=== PATIENT | female | born 2000 | race Caucasian/White ===

== ENCOUNTER → 2021-06-29 16:23 | Outpatient (CLI) | payer OTHER, SELFPAY ==
[2021-06-29 17:04] LABS: Add Manual Diff / Slide Review NO; Basophils Absolute Auto 0 /uL (0-100); Basophils Percent Auto 0.4 % (0-2); Eosinophils Absolute Auto 100 /uL (0-450); Eosinophils Percent Auto 1.4 % (2-4); Hematocrit 38.9 % (36-46); Hemoglobin 13.5 g/dL (12.0-16.0); Lymphocytes Absolute Auto 1900 /uL (1100-4500); Lymphocytes Percent Auto 22.3 % (25-40); Mean Corpuscular HGB Conc 34.6 % (30-36); Mean Corpuscular Hemoglobin 29.8 PG (26-34); Mean Corpuscular Volume 86.3 fL (80-100); Monocytes Absolute Auto 600 /uL (0-900); Monocytes Percent Auto 6.8 % (3-14); Neutrophils Absolute Auto 5900 /uL (1500-7000); Neutrophils Percent Auto 69.1 % (50-75); Platelet Count 226 X10^3/uL (150-400); Red Blood Cell Count 4.51 X10^6/uL (4.0-5.2); Red Cell Distribution Width 13.8 % (11.6-14.8); White Blood Cell Count 8.5 X10^3/uL (4.5-11.0)
[2021-06-29 17:26] LABS: Appearance Urine UA CLEAR; Bilirubin Urine UA NEGATIVE (NEGATIVE); Color Urine UA YELLOW; Glucose Urine UA NEGATIVE (Negative); Ketones Urine UA NEGATIVE (NEGATIVE); Leukocyte Esterase Urine UA 2+ (NEGATIVE); Nitrite Urine UA NEGATIVE (Negative); Occult Blood Urine UA NEGATIVE (Negative); Protein Urine UA NEGATIVE (Negative); Specific Gravity Urine UA 1.015 (1.000-1.035); Urobilinogen Urine UA 0.2 E.U./dL (0.2)
[2021-06-29 17:35] LABS: Bacteria Urine Few (2-10); Culture Indicated Urine Cult Not Indicated; RBC Urine None Seen (0-5/HPF); Squamous Epithelial Cell Urine 0-1 /HPF (0-5/HPF); WBC Urine 5-10/HPF (0-5/HPF)
[2021-06-30 06:54] LABS: RPR Screen Non Reactive (Non Reactive)
[2021-06-30 12:10] LABS: Varicella IgG Antibody 550 index (Immune >165)
[2021-07-02 16:13] LABS: Hepatitis B Surface Antigen NEGATIVE s/c (NEGATIVE); Rubella Antibody IgG 4.9 IU/mL (>15)
[2021-07-02 16:24] LABS: HIV 1 & 2 Ab/Ag 4th Gen Combo NEGATIVE (NEGATIVE); Hep C Virus Ab w/Reflex Quant NEGATIVE s/c (NEGATIVE)
== END ==
PROVIDERS: PCP Family Medicine; Referring Provider Family Medicine; Visit Provider Family Medicine
DX: Z34.80 Encounter for supervision of other normal pregnancy, unspecified trimester (principal)
CPT/HCPCS: 36415; 80055; 81003; 81015; 86787; 86803; 86850; 86900; 86901; 87086; 87389

== ENCOUNTER → 2021-08-21 15:03 | Outpatient (CLI) | payer OTHER, SELFPAY ==
--- NOTE | 2021-08-21 15:04 | DI.US.S_ITS ---
PROCEDURE: US OB >= 14 WEEKS FETUS INDICATIONS: ANATOMY OUTSIDE/PRIOR DATING DATA: Last menstrual period (LMP): 03/29/2021 LMP-based estimated date of delivery (DARLING): 01/03/2022. First dating scan (date and location): 08/21/2021. Estimated date of delivery (DARLING) from first dating scan: 01/03/2022. The calculations are made using the ultrasound DARLING of 01/03/2022. TECHNIQUE: Real-time scanning was performed of the fetus, with image documentation and biometric measurements. COMPARISON: None. FINDINGS: General: A single living intrauterine gestation is present. Presentation: Breech. Placenta: Placental position is anterior , without previa. Amniotic fluid index: 15.3 cm, normal range is 5-24 cm. heart rate: 141 beats per minute. Maternal cervical canal: 5.0 cm long. Normal lower limit is 2.5 cm. biometrics: Biparietal diameter: 20 weeks 4 days Head circumference: 21 weeks 0 days Abdominal circumference: 20 weeks 2 days Femur length: 20 weeks 6 days Composite gestational age from present scan: 20 weeks 5 days Anatomic survey: Neuro: Ventricles are non-dilated at less than 10 mm. Cisterna magna is normal at 3-11 mm. Cerebellum is normal in size and morphology. Nuchal skin fold: Normal at less than 6 mm between 14-21 weeks gestational age. Face: Nose and lips, facial profile are normal. Spine: No evidence for spina bifida. Heart: 4-chambered heart is present, with normal ventricular outflow tracts. Diaphragm: Diaphragm is intact. Stomach: Left-sided stomach is present. Kidneys: No hydronephrosis. Normal is less than 5 mm in 2nd trimester, less than 7 mm in 3rd trimester. Cord: 3-vessel cord has orthotopic insertion. Bladder: Normal in size. Extremities: All 4 extremities identified. IMPRESSION: 1. A 20-week 5-day single living IUP corresponding to ultrasound DARLING of 01/03/2022. 2. Normal anatomic survey. We strive to produce accurate, complete, and clear reports of imaging services. To assist us in improving patient care, this report was composed using standard report templates and voice recognition software. Therefore, it may contain abnormal punctuation, insertions and/or omissions. Occasional wrong-word or sound-alike substitutions may occur. Though we review the report and make efforts to correct it, we do recommend that the report be read carefully in proper context to recognize any text inaccuracies. Dictated by: Eliezer AVILA Interpreted: Jeanna Linda MD on 08/21/2021 at 16:45 Transcribed by: YAIMA on 08/21/2021 at 16:47 Approved by: Jeanna Linda M.D. on 08/21/2021 at 17:24
== END ==
PROVIDERS: PCP Family Medicine; Referring Provider Family Medicine; Visit Provider Family Medicine
DX: Z34.92 Encounter for supervision of normal pregnancy, unspecified, second trimester (principal); Z3A.20 20 weeks gestation of pregnancy
CPT/HCPCS: 76811

== ENCOUNTER → 2021-08-28 10:51 | Outpatient (CLI) | payer OTHER, SELFPAY | PROVIDERS: PCP Family Medicine; Referring Provider Family Medicine; Visit Provider Family Medicine | DX: Z01.83 Encounter for blood typing (principal) | CPT/HCPCS: 36415; 86850; 86900; 86901 ==

== ENCOUNTER → 2021-10-08 08:58 | Outpatient (CLI) | payer OTHER, SELFPAY ==
[2021-10-08 11:09] LABS: Add Manual Diff / Slide Review NO; Basophils Absolute Auto 0 /uL (0-100); Basophils Percent Auto 0.3 % (0-2); Eosinophils Absolute Auto 100 /uL (0-450); Eosinophils Percent Auto 0.8 % (2-4); Hematocrit 34.1 % (36-46); Hemoglobin 11.8 g/dL (12.0-16.0); Lymphocytes Absolute Auto 1200 /uL (1100-4500); Lymphocytes Percent Auto 17.5 % (25-40); Mean Corpuscular HGB Conc 34.6 % (30-36); Mean Corpuscular Hemoglobin 30.7 PG (26-34); Mean Corpuscular Volume 88.8 fL (80-100); Monocytes Absolute Auto 400 /uL (0-900); Monocytes Percent Auto 5.7 % (3-14); Neutrophils Absolute Auto 5300 /uL (1500-7000); Neutrophils Percent Auto 75.7 % (50-75); Platelet Count 210 X10^3/uL (150-400); Red Blood Cell Count 3.84 X10^6/uL (4.0-5.2); Red Cell Distribution Width 13.4 % (11.6-14.8)
[2021-10-08 11:51] LABS: GTT (PREG) 1 Hour PP 50gm Dose 151 mg/dL (76-139)
== END ==
PROVIDERS: PCP Family Medicine; Referring Provider Family Medicine; Visit Provider Family Medicine
DX: O26.899 Other specified pregnancy related conditions, unspecified trimester (principal); Z67.91 Unspecified blood type, Rh negative; Z3A.26 26 weeks gestation of pregnancy
CPT/HCPCS: 36415; 82950; 85025; 86850

== ENCOUNTER → 2021-10-12 09:00 | Outpatient (CLI) | payer OTHER, SELFPAY ==
[2021-10-12 10:39] LABS: Glucose Fasting Gestational 86 mg/dL (76-95)
[2021-10-12 12:27] LABS: Glucose 1 Hour Gest 153 mg/dL (76-180)
[2021-10-12 12:42] LABS: Glucose Tol Interp,Gestational INTERPRETATION
[2021-10-12 13:04] LABS: Glucose 2 Hour Gest 158 mg/dL (76-155)
[2021-10-12 13:44] LABS: Glucose 3 Hour Gest 145 mg/dL (76-140)
== END ==
PROVIDERS: PCP Family Medicine; Referring Provider Family Medicine; Visit Provider Family Medicine
DX: O24.419 Gestational diabetes mellitus in pregnancy, unspecified control (principal)
CPT/HCPCS: 36415; 82951; 82952

== ENCOUNTER → 2021-12-10 17:19 | Outpatient (CLI) | payer OTHER, SELFPAY ==
[2021-12-12 13:32] LABS: Strep Grp B PCR NEG for Grp B Strep
== END ==
PROVIDERS: PCP Family Medicine; Visit Provider Family Medicine
DX: Z36.85 Encounter for antenatal screening for Streptococcus B (principal)
CPT/HCPCS: 87653

== ENCOUNTER 2021-12-21 10:01 | Inpatient (IN) | payer OTHER, SELFPAY ==
--- NOTE | 2021-12-21 10:33 | PM.OBHP.IH.1 ---
OB HPI Date/Time Date of admission: 12/21/21 Date Patient Seen: 12/21/21 History of Present Condition Chief complaint: OB DARLING Calculator Estimated Delivery Date Method Current WG Current Estimate 01/03/22 Manual 38w 1d Final DARLING - [place] Other Estimates 01/03/22 LMP (Certain) 38w 1d 01/03/22 Ultrasound #1 38w 1d Estimated Gestational Age (weeks): 38w1d : 2 Para: 1 Narrative: Pt is a 21yo at 38w1d who presented with leaking fluid. Pt reports feeling a trickling of fluid at around 8:30am. It has continued since then. No contractions or vaginal bleeding. She is feeling her baby move regularly. Her was complicated by gestational diabetes, with excellent diet control. care: good care, initiated at week # (13) and pounds weight gain (23) Dating criteria OB: LMP confirmed by 1st trimester US Ultrasounds: normal 1st trimester US and normal mid trimester US Obstetrical complications: gestational diabetes Medical complications OB: none Preadmission Labs Last OB Lab Results: Blood Type A Negative 08/28/21 10:56 Antibody Screen Negative 10/08/21 09:14 Hematocrit 34.9 % (36-46) L 12/21/21 10:50 Hemoglobin 11.8 g/dL (12.0-16.0) L 12/21/21 10:50 Hepatitis B Surface Antigen Negative s/c (NEGATIVE) 06/29/21 16:33 Hepatitis C Antibody Negative s/c (NEGATIVE) 06/29/21 16:33 Rubella Antibody 4.9 IU/mL (>15) L 06/29/21 16:33 Varicella-Zoster IgG Antibody 550 index (Immune >165) 06/29/21 16:33 Glucose 1 Hour 151 mg/dL (76-139) H 10/08/21 09:14 Group B Streptococcus (PCR) Neg for grp b strep 12/10/21 17:19 Glucose Tolerance Testing: Fasting (86), 1 hr (153), 2 hr (158) and 3 hr (145) -: Urine: negative External Labs -: Urine: negative Prior (ies) Past Pregnancies Del. Date GA/Weeks Labor Lgth Wt Sex Route Outcome Anesthesia Place Delv Breastfeed Preg Comp Name 07/29/16 38 24 6 lb 15 oz Male vaginal live - full term epidural [place] n/a none [place] Evaluation Evaluation Baseline heart rate: 135 Variability: Moderate (11-25) monitor accelerations: Present Monitor Decelerations: Absent Contraction Frequency (minutes): 6 Uterine Contraction Intensity: Mild Status: Category l Dilation (cm): 4 Effacement (%): 60 station: -3 [facility] Medical History (Updated 10/16/21 @ 10:44 by Janette Mccoy MD) No significant past medical history Surgical History (Updated 06/21/21 @ 14:32 by Enedina Ho RN) No significant past surgical history Family History (Updated 06/25/21 @ 19:54 by Rosita Martinez) Grandmother Diabetes mellitus Hyperlipidemia Hypertension Grandfather History of emphysema Social History marital status: number of children: 1 household members: spouse and children lives independently: Yes housing: house pets 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) education level: other occupational status: unemployed special maira needs: No seatbelt use: always water heater temp set < 120 deg: Yes (will check) working smoke detector in home: Yes fire extinguisher in home: Yes carbon monox detector in home: Yes firearms in home: No do you feel safe at home: Yes Smoking Status: Never smoker second hand exposure: No alcohol intake: former substance use type: does not use during the past year weight has: remained stable well-balanced diet: daily or most days daily servings fruits/ve-4 caffeine: No Type(s) of exercise: walking and regular exercise Meds Home Medications and Allergies Home Medications Medication Instructions Recorded Confirmed Type prenat.vits,casandra,[id number]-[id number] 1 tab PO DAILY 06/21/21 12/18/21 History fluconazole 150 mg tablet 150 mg PO DAILY rash #1 tab 07/03/21 12/18/21 Rx (Diflucan) glucometer #1 ea 10/16/21 12/18/21 Rx glucometer test strips #150 ea 10/19/21 12/18/21 Rx lancets #150 ea 10/19/21 12/18/21 Rx Allergies Allergy/AdvReac Type Severity Reaction Status Date / Time No Known Drug Allergies Allergy Unverified 12/18/21 10:33 OB Exam Narrative Exam Narrative: Gen: NAD, sitting comfortably in bed, appears well CV: RRR, no murmurs Resp: clear to auscultation bilaterally Abd: soft, nontender, gravid Ext: no edema Objective Labs Result Diagrams: 12/21/21 10:50 Assessment and Plan Assessment and Plan Assessment and Plan narrative: 21yo at 38w1d here with PROM. complicated by GDMA1 with excellent control. Rh negative (received Rhogam 10/16/21), GBS negative. - Expectant management, anticipate - FHT reassuring - Epidural for pain control when desired - GBS negative, no prophylaxis needed - After discussion with patient, will hold on pitocin for now to see if she converts spontaneously into labor. Will need to start by 8:30pm if not in labor by that point.
[2021-12-21 11:29] LABS: COVID19 -Nasal RAPID Negative (Negative)
[2021-12-21 11:41] LABS: Add Manual Diff / Slide Review NO; Basophils Absolute Auto 0 /uL (0-100); Basophils Percent Auto 0.2 % (0-2); Eosinophils Absolute Auto 100 /uL (0-450); Eosinophils Percent Auto 1.6 % (2-4); Hematocrit 34.9 % (36-46); Hemoglobin 11.8 g/dL (12.0-16.0); Lymphocytes Absolute Auto 1500 /uL (1100-4500); Lymphocytes Percent Auto 16.1 % (25-40); Mean Corpuscular HGB Conc 33.8 % (30-36); Mean Corpuscular Hemoglobin 28.3 PG (26-34); Mean Corpuscular Volume 83.7 fL (80-100); Monocytes Absolute Auto 800 /uL (0-900); Monocytes Percent Auto 8.7 % (3-14); Neutrophils Absolute Auto 6700 /uL (1500-7000); Neutrophils Percent Auto 73.4 % (50-75); Platelet Count 216 X10^3/uL (150-400); Red Blood Cell Count 4.17 X10^6/uL (4.0-5.2); Red Cell Distribution Width 14.7 % (11.6-14.8); White Blood Cell Count 9.2 X10^3/uL (4.5-11.0)
[2021-12-21 14:28] VITALS: BP 123/62
[2021-12-21] MEDS: LACTATED RINGERS 1,000 ML 100 ML IV (17:07)
[2021-12-21] MEDS: OXYTOCIN PREMIX 30 UNIT/500 ML PLAST..BAG IV (17:07)
--- NOTE | 2021-12-21 22:11 | P.PCNOB_ITS ---
Events: Gestational Diabetes Labor & Delivery Delivery date: 12/21/21 Intrapartal Events: None Cervical ripening method: none Induction method: per pitocin protocol Delivery monitor: external FHT and external uterine Route of delivery: Episiotomy description: None L&D Laceration Description: Perineal - 2nd Degree Quantitative Blood Loss: 100 Anesthesia Type: None Complications: None Narrative: PROCEDURE: at 38w1d presented with PROM and was admitted to Labor and Delivery. Pitocin was initiated due to no progression into labor, and titrated to a maximum of 11mU. The patient progressed through the 1st stage over 13 hours. Pain was controlled with natural methods. The patient progressed through the 2nd stage over 25 minutes and delivered a viable female infant with APGARs 9/9 at 21:43 via without complications. The cord was clamped and cut after it stopped pulsating. The perineum and vagina were inspected with 2nd degree perineal laceration repaired with 2-O Vicryl. PREPROCEDURE DIAGNOSIS: Intrauterine at 38w1d GBS negative RH negative GDMA1 POSTPROCEDURE DIAGNOSIS: Intrauterine at 38w1d, delivered Same as preprocedure [place] Baby 1: Infant gender: Female Presentation: vertex Position: Left Occiput Anterior Placenta delivery description: Spontaneous Cord Vessel Description: 3 Vessels score (1 min): 9 score (5 min): 9 weight: 7 lb 11.812 oz Plan for aftercare: Routine care
[2021-12-21] MEDS: IBUPROFEN 600 MG TABLET PO (23:28)
[2021-12-21] MEDS: ACETAMINOPHEN 325 MG TABLET 650 MG PO (23:28)
[2021-12-21] MEDS: DERMOPLAST SPRAY 20% 60 ML 1 SPRAY TOP (23:28)
[2021-12-22] MEDS: IBUPROFEN 600 MG TABLET PO ×3 (05:35→20:29)
[2021-12-22] MEDS: ACETAMINOPHEN 325 MG TABLET 650 MG PO ×3 (05:35→20:29)
[2021-12-22] MEDS: DOCUSATE 100 MG CAPSULE PO (11:56)
[2021-12-22] MEDS: PRENATAL VIT,CALC/IRON/FOLIC 1 TABLET 1 TAB PO (11:56)
--- NOTE | 2021-12-22 13:03 | PM.OBDS.1 ---
Discharge Providers Provider Date of admission: 12/21/21 10:01 Discharge Date: 12/22/21 Primary care physician: Janette Mccoy MD Consults: 12/22/21 22:12 Consult to Manager Home Improvement Routine Comment: Discharge provider: Janette Mccoy MD Summary Hospital Course Date Patient Seen: 12/22/21 Diagnoses: Intrauterine at 38w1d GBS negative RH negative GDMA1 Hospital Course: The pt presented with PROM. She did not naturally progress into labor, and pitocin was initiated. The pt then progressed to complete and had an of a viable baby girl, using natural methods for pain control. 2nd degree perineal laceration was then repaired. , there were no complications. At the time of discharge she was voiding, ambulating, and passing flatus without difficulty. Her lochia was decreasing appropriately. Her pain was well controlled. She was pumping and formula feeding. She will f/u in clinic in 6 weeks for check. She would like to consider tubal ligation for contraception. Peripartum Data Infant Delivery Method: Natural Vaginal Laceration Description: Perineal - 2nd Degree Episiotomy description: None Procedures: Spontaneous vaginal delivery complications: none 1: Gender: Female Disposition of : home Discharge Diagnosis (1) Gestational diabetes: Status: Acute (2) Spontaneous vaginal delivery: Status: Acute Time Spent with Patient Time attestation: Total time spent providing and/or coordinating discharge services: Objective Labs Result Diagrams: 12/21/21 10:50 Labs: Laboratory Results - last 24 hr 12/21/21 10:50 Blood Type A Negative Antibody Screen Positive Antibody Identification Anti-D Exam Narrative Exam Narrative: Gen: NAD, sitting comfortably in bed, appears well CV: RRR, no murmurs Resp: clear to auscultation bilaterally Abd: soft, appropriately tender, fundus firm and below the umbilicus, nondistended Ext: no edema Discharge Plan Discharge Plan Patient Disposition: Home Discharge orders & Medications Prescriptions: New acetaminophen 325 mg Tablet 650 mg PO Q6HR PRN (Reason: Pain, Mild (1-3)) Qty: 30 0RF docusate sodium 100 mg Capsule 100 mg PO DAILY Qty: 30 0RF ibuprofen 600 mg Tablet 600 mg PO Q6HR PRN (Reason: Pain, Mild (1-3)) Qty: 30 0RF Continued prenat.vits,casandra,[id number] Tablet 1 tab PO DAILY Discontinued (DME) glucometer See Rx Instructions .Route .MEDSUPPLY Qty: 1 0RF Rx Instructions: Test blood glucose each am while fasting, 2 hrs after each meal and at hs. Glucometer covered by insurance fluconazole [Diflucan] 150 mg tablet 150 mg PO DAILY Qty: 1 0RF (DME) glucometer test strips See Rx Instructions .Route .MEDSUPPLY Qty: 150 5RF Rx Instructions: Test fasting each am, 2hrs after each meal and HS. Test strips compatible with glucometer (DME) lancets See Rx Instructions .Route .MEDSUPPLY Qty: 150 5RF Rx Instructions: Use new lancet to check blood glucose levels each am fasting, 2 hrs after each meal and at hs Follow up/Referrals: Janette Mccoy MD [Primary Care Provider] - 6 Weeks Diet/Activity/Treatments Diet: Diet as Tolerated and Regular Skin/Wound/Dressing Care Report to your healthcare provider any signs of infection, such as:: chills, fever, increased pain and unusual drainage Visit Report/Discharge Packet Instructions: Depression, DI for Labor and Delivery, Vaginal Stand Alone Forms: Discharge: Care, Discharge: [place] [facility] Visit Report Forms: Patient Portal/API, Stroke Signs & Symptoms Discharge Data Primary Care Provider: Janette Mccoy Discharges patient from system. Discharge Date/Time: 12/22/21 22:00
[2021-12-22 22:42] VITALS: BP 123/62
== END 2021-12-22 22:00 | disposition home or self-care (01) | DRG 806 ==
PROVIDERS: Admitting Provider Family Medicine; PCP Family Medicine; Referring Provider Family Medicine; Visit Provider Family Medicine
DX: O24.420 Gestational diabetes mellitus in childbirth, diet controlled (principal); O36.0130 Maternal care for anti-D [Rh] antibodies, third trimester, not applicable or unspecified; Z37.0 Single live birth; Z67.11 Type A blood, Rh negative; Z3A.38 38 weeks gestation of pregnancy; O70.1 Second degree perineal laceration during delivery; O42.02 Full-term premature rupture of membranes, onset of labor within 24 hours of rupture; Z20.822 Contact with and (suspected) exposure to COVID-19
CPT/HCPCS: 36415; 59050; 59400; 85025; 86850; 86870; 86900; 86901; 87635; C9803; G0379; J2590

== ENCOUNTER 2021-12-27 20:53 | Emergency (ER) | payer OTHER, SELFPAY ==
[2021-12-27 21:14] VITALS: BP 158/77; PULSE 81; RESP 20; TEMP 36.5; O2SAT 98; BMI 27.8
--- NOTE | 2021-12-27 21:22 | DI.RAD.S_ITS ---
PROCEDURE: XR CHEST 1V INDICATIONS: chest pain TECHNIQUE: One view of the chest was acquired. COMPARISON: None. FINDINGS: Surgical changes and devices: None. Lungs and pleura: Lungs are clear. No pleural effusions or pneumothorax. Mediastinum: Mediastinal contours appear normal. Heart size is normal. Bones and chest wall: No suspicious bony lesions. Overlying soft tissues appear unremarkable. IMPRESSION: 1. No acute cardiopulmonary disease. Dictated by: Christian Holliday M.D. on 12/27/2021 at 22:52 Approved by: Christian Holliday M.D. on 12/27/2021 at 22:53
--- NOTE | 2021-12-27 21:43 | ED.CHESTPAIN ---
HPI - Chest Pain General Chief Complaint: Chest Pain Stated Complaint: CHEST PAIN/NAUSEA Time Seen by Provider: 12/27/21 21:42 Source: patient Mode of arrival: Ambulatory Limitations: no limitations Limitations: no limitations History of Present Illness HPI narrative: This is a 21-year-old female who is 5 days from a vaginal delivery who comes emergency department with complaint of chest just underneath the ribcage. She describes it as constant. Patient states chest pain is been present for the past 2 days. She states that it is currently under her ribcage does not involve the breast at all. Denies fevers or chills. No shortness of breath, she is had some nausea she had 1 episode of vomiting tonight which he states seemed to mucousy. She states it does not radiate elsewhere like her neck arms or back. She denies cold, congestion or cough. She denies headache. She denies any jerking or hyperreflexia. Denies diarrhea or constipation. No new vaginal discharge or odor or color changes she still is having bleeding from her delivery. Patient denies any past medical issues, denies daily medications other than vitamins. No surgical history. No known drug allergies. No tobacco, alcohol or illicit. She is pumping breast milk. She denies family history of cardiac or embolic or vascular history. Related Data Home Medications Medication Instructions Recorded Confirmed prenat.vits,casandra,[id number] 1 tab PO DAILY 06/21/21 12/18/21 Previous Rx's Medication Instructions Recorded acetaminophen 325 mg tablet 650 mg PO Q6HR PRN Pain, Mild 12/22/21 (1-3) #30 tabs docusate sodium 100 mg capsule 100 mg PO DAILY #30 caps 12/22/21 ibuprofen 600 mg tablet 600 mg PO Q6HR PRN Pain, Mild 12/22/21 (1-3) #30 tabs Allergies Allergy/AdvReac Type Severity Reaction Status Date / Time No Known Drug Allergies Allergy Verified 12/27/21 21:21 Review of Systems Review of Systems ROS Unobtainable: All systems reviewed & are unremarkable except as noted in HPI and below Patient History Medical History No significant past medical history Spontaneous vaginal delivery Surgical History No significant past surgical history Family History Grandmother Diabetes mellitus Hyperlipidemia Hypertension Grandfather History of emphysema Social History marital status: number of children: 1 household members: spouse and children lives independently: Yes housing: house pets 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) education level: other occupational status: unemployed special maira needs: No seatbelt use: always water heater temp set < 120 deg: Yes (will check) working smoke detector in home: Yes fire extinguisher in home: Yes carbon monox detector in home: Yes firearms in home: No do you feel safe at home: Yes Smoking Status: Never smoker second hand exposure: No alcohol intake: former substance use type: does not use during the past year weight has: remained stable well-balanced diet: daily or most days daily servings fruits/ve-4 caffeine: No Type(s) of exercise: walking and regular exercise Smoking Status: Never smoker Exam Narrative Exam Narrative: GENERAL: Alert and oriented x three, female in mild distress HEENT: Head normocephalic, atraumatic, EOMI, pupils reactive, face symmetric, moist mucous membranes NECK: Supple, full range of motion CARDIOVASCULAR: Regular rate and rhythm without murmurs, rubs or gallops. RESPIRATORY: Breath sounds equal bilaterally, no wheezes rales or rhonchi. ABDOMEN: Soft, nontender. Nondistended. Normoactive bowel sounds all 4 quadrants. No guarding or rebound, rigidity, no mass. : No CVA tenderness EXTREMITIES: Normal range of motion, no clubbing or edema. Neurovascularly intact. DTRs 2/4 with no hyperreflexia. NEUROLOGICAL: Cranial nerves II through XII grossly intact. Moving all extremities SKIN: Warm, dry, no petechiae, no rashes or lesions. Initial Vital Signs Initial Vital Signs: Vital Signs Temperature 97.7 F 12/27/21 21:14 Pulse Rate 81 12/27/21 21:14 Respiratory Rate 20 12/27/21 21:14 Blood Pressure 158/77 H 12/27/21 21:14 Pulse Oximetry 98 12/27/21 21:14 Oxygen Delivery Method 12/27/21 21:14 Course Orders Ordered: ED Orders 12/27/21 21:22 XR chest 1V Stat EKG-12 Lead Stat 12/27/21 21:31 Complete Blood Count AUTO DIFF Stat Comprehensive Metabolic Panel Stat D Dimer Stat Lipase Stat Magnesium Stat Troponin & CK Cardiac Panel Stat 12/27/21 22:26 CT angio chest PE protocol Stat Vital Signs Vital signs: Vital Signs - 8 hr 12/27/21 21:14 12/27/21 23:53 12/27/21 23:14 Temperature 97.7 F Pulse Rate 81 80 59 L Respiratory Rate 20 16 13 Blood Pressure 158/77 H 130/80 Pulse Oximetry 98 97 97 Oxygen Delivery Method Room Air Room Air 12/27/21 23:30 12/27/21 23:40 12/27/21 23:40 Temperature Pulse Rate 77 78 Respiratory Rate 15 19 Blood Pressure 130/80 Pulse Oximetry 98 97 Oxygen Delivery Method MDM - Chest Pain Lab Data Result diagrams: 12/27/21 21:31 12/27/21 21:31 Labs: Lab Results 12/27/21 12/27/21 12/27/21 Range/Units 21:31 21:31 21:31 WBC 7.9 (4.5-11.0) X10^3/uL RBC 4.02 (4.0-5.2) X10^6/uL Hgb 11.3 L (12.0-16.0) g/dL Hct 34.1 L (36-46) % MCV 84.9 (80-100) fL MCH 28.0 (26-34) PG MCHC 33.0 (30-36) % RDW 15.2 H (11.6-14.8) % Plt Count 286 (150-400) X10^3/uL Neut % (Auto) 68.2 (50-75) % Lymph % (Auto) 20.5 L (25-40) % [place] % (Auto) 6.7 (3-14) % Eos % (Auto) 3.8 (2-4) % Baso % (Auto) 0.8 (0-2) % Neut # (Auto) 5400 (9458-3927) /uL Lymph # (Auto) 1600 (2758-1340) /uL [place] # (Auto) 500 (0-900) /uL Eos # (Auto) 300 (0-450) /uL Baso # (Auto) 100 (0-100) /uL D-Dimer 1750 H (<500) ng/ml Sodium 141 (137-145) mmol/L Potassium 3.5 (3.4-5.1) mmol/L Chloride 109 H (98-107) mmol/L Carbon Dioxide 22 (22-32) mmol/L BUN 14 (7-17) mg/dL Creatinine 0.72 (0.52-1.04) mg/dL Estimated GFR > 60 (>60) mL/min BUN/Creatinine Ratio 19.4 (6-22) Glucose 104 H (70-100) mg/dL Calcium 8.8 (8.4-10.2) mg/dL Magnesium 1.9 (1.6-2.3) mg/dL Total Bilirubin 0.3 (0.2-1.3) mg/dL AST 21 (14-36) IU/L ALT 37 H (<35) IU/L Alkaline Phosphatase 106 (38-126) U/L Total Creatine Kinase 58 (30-135) U/L CK-MB (CK-2) TNP CK-MB (CK-2) Rel Index TNP Troponin I < 0.012 (0.01-0.034) ng/mL Total Protein 6.8 (6.3-8.2) g/dL Albumin 3.6 (3.5-5.0) g/dL Globulin 3.2 (1.7-4.1) g/dL Albumin/Globulin Ratio 1.1 (1.0-2.8) Lipase 80 (23-300) U/L Imaging Data CT scan - chest: Radiologist's Impression: Close Chest CTA (Signed) Christian Holliday - 12/27/21 Chest X-Ray (Signed) Christian Holliday - 12/27/21 Launch?[address] [address] [address] Scan Report Signed Patient: Janie Jones MR#: [id number] : 2000 Acct:[id number] Age/Sex: 21 / F Date of Service: 12/27/21 Loc: ED Accession Number: [id number] ?? Procedure: CT angio chest PE protocol Ordering Provider: Mank,Simona C D.O. PROCEDURE:? CT ANGIO CHEST PE PROTOCOL ? INDICATIONS:? chest pain, n/v x1 ? TECHNIQUE:? After the administration of intravenous contrast, 2 mm thick sections acquired from the pulmonary apices to the posterior costophrenic angles.? 3-dimensional maximum intensity projection (MIP) coronal and sagittal reformats were then acquired through the thorax.? For radiation dose reduction, the following was used:? automated exposure control, adjustment of mA and/or kV according to patient size.? ? COMPARISON:? None. ? FINDINGS:? Image quality:? Excellent.? ? Pulmonary arteries:? Pulmonary arteries are normal in size, and demonstrate no intraluminal filling defects to suggest central pulmonary embolism.? ? Lower Neck: No lymphadenopathy by size criteria. Thyroid:? Visualized thyroid demonstrates no discrete nodules. Axillae: No lymphadenopathy by size criteria. Chest Wall:? Unremarkable.? Bones: Visualized osseous structures demonstrate no suspicious lesions. ? Lungs and Airways:? No acute consolidation.? No suspicious pulmonary nodules. The trachea and central airways are patent. Pleura: No pneumothorax or pleural effusions.? ? Heart: Heart size is normal.? No pericardial effusion. Thoracic Vessels: The thoracic aorta is normal in size.? Mediastinum and Yvette: No lymphadenopathy by size criteria. Esophagus: No wall thickening. No hiatal hernia. ? Abdomen:? Visualized upper abdominal solid organs appear normal in the early arterial phase of enhancement.? ? IMPRESSION:? ? 1. No evidence of pulmonary embolism. ? 2. No acute airspace consolidation. ? ? Dictated by: Christian Holliday M.D. on 12/27/2021 at 23:19 ? ? Approved by: Christian Holliday M.D. on 12/27/2021 at 23:22?? ECG Data Attestation: I personally reviewed and interpreted this ECG as follows: Interpretation: Sinus rhythm with sinus arrhythmia rate of 70 2p are 140 QRS of 74 [address]TC [address]. No acute [address] changes appreciated. MDM Narrative Medical decision making narrative: 21-year-old female with lower chest pain/nausea. Patient's abdomen is nontender on exam. Her EKG does not show acute changes. She is slightly high risk for pulmonary emboli with her recent delivery. She is hypertensive on her initial blood pressure. DTRs are negative, no edema bilateral lower extremities making preeclampsia less likely but will monitor her blood pressure during her stay. Patient cardiac workup is negative, dimer is elevated although this can be secondary to her recent state. CT angio is negative with no other acute findings. Repeat vitals show blood pressure 130. No other changes consistent with preeclampsia. Patient's exam is otherwise reassuring. Plan for follow-up with primary care and return precautions. Discharge Plan Departure Patient Disposition: Home Clinical Impression: Atypical chest pain Instructions: DI for Atypical Chest Pain Activity Restrictions/Additional Instructions: Follow-up with your department director for recheck. Your blood pressure was 150 systolic initially but came down to 130 systolic during your stay here. Talk with your physician about having it rechecked. You can take Tylenol and/or ibuprofen for pain. Please return for fevers, new or worsening abdominal pain, chest pain, persistent vomiting, black or bloody stools, lightheadedness or passing out, foul odor or signs of infection with vaginal discharge or other new or concerning changes. Prescriptions: No Action prenat.vits,casandra,[id number]-pynet Tablet 1 tab PO DAILY acetaminophen 325 mg Tablet 650 mg PO Q6HR PRN (Reason: Pain, Mild (1-3)) Qty: 30 0RF docusate sodium 100 mg Capsule 100 mg PO DAILY Qty: 30 0RF ibuprofen 600 mg Tablet 600 mg PO Q6HR PRN (Reason: Pain, Mild (1-3)) Qty: 30 0RF Referrals: Janette Mccoy MD [Primary Care Provider] - Visit Report Forms: Patient Portal/API
[2021-12-27 21:44] LABS: Add Manual Diff / Slide Review NO; Basophils Absolute Auto 100 /uL (0-100); Basophils Percent Auto 0.8 % (0-2); Eosinophils Absolute Auto 300 /uL (0-450); Eosinophils Percent Auto 3.8 % (2-4); Hematocrit 34.1 % (36-46); Hemoglobin 11.3 g/dL (12.0-16.0); Lymphocytes Absolute Auto 1600 /uL (1100-4500); Lymphocytes Percent Auto 20.5 % (25-40); Mean Corpuscular Volume 84.9 fL (80-100); Monocytes Absolute Auto 500 /uL (0-900); Monocytes Percent Auto 6.7 % (3-14); Neutrophils Absolute Auto 5400 /uL (1500-7000); Neutrophils Percent Auto 68.2 % (50-75); Platelet Count 286 X10^3/uL (150-400); Red Blood Cell Count 4.02 X10^6/uL (4.0-5.2); Red Cell Distribution Width 15.2 % (11.6-14.8); White Blood Cell Count 7.9 X10^3/uL (4.5-11.0)
[2021-12-27 21:51] LABS: Alanine Aminotransferase 37 IU/L (<35); Albumin 3.6 g/dL (3.5-5.0); Albumin Globulin Ratio 1.1 (1.0-2.8); Alkaline Phosphatase 106 U/L (38-126); Aspartate Aminotransferase 21 IU/L (14-36); BUN Creatinine Ratio 19.4 (6-22); Bilirubin Total 0.3 mg/dL (0.2-1.3); Blood Urea Nitrogen 14 mg/dL (7-17); Calcium 8.8 mg/dL (8.4-10.2); Carbon Dioxide 22 mmol/L (22-32); Chloride 109 mmol/L (98-107); Creatine Kinase 58 U/L (30-135); Estimated Glomerular Filt Rate > 60 mL/min (>60); Globulin 3.2 g/dL (1.7-4.1); Glucose 104 mg/dL (70-100); HEMOLYSIS < 15 (0-50); Lipase 80 U/L (23-300); Magnesium 1.9 mg/dL (1.6-2.3); Potassium 3.5 mmol/L (3.4-5.1); Sodium 141 mmol/L (137-145); Total Protein 6.8 g/dL (6.3-8.2)
[2021-12-27 22:02] LABS: Troponin I < 0.012 ng/mL (0.01-0.034)
[2021-12-27 22:09] LABS: D Dimer 1750 ng/ml (<500)
--- NOTE | 2021-12-27 22:26 | DI.CT.S_ITS ---
PROCEDURE: CT ANGIO CHEST PE PROTOCOL INDICATIONS: chest pain, n/v x1 TECHNIQUE: After the administration of intravenous contrast, 2 mm thick sections acquired from the pulmonary apices to the posterior costophrenic angles. 3-dimensional maximum intensity projection (MIP) coronal and sagittal reformats were then acquired through the thorax. For radiation dose reduction, the following was used: automated exposure control, adjustment of mA and/or kV according to patient size. COMPARISON: None. FINDINGS: Image quality: Excellent. Pulmonary arteries: Pulmonary arteries are normal in size, and demonstrate no intraluminal filling defects to suggest central pulmonary embolism. Lower Neck: No lymphadenopathy by size criteria. Thyroid: Visualized thyroid demonstrates no discrete nodules. Axillae: No lymphadenopathy by size criteria. Chest Wall: Unremarkable. Bones: Visualized osseous structures demonstrate no suspicious lesions. Lungs and Airways: No acute consolidation. No suspicious pulmonary nodules. The trachea and central airways are patent. Pleura: No pneumothorax or pleural effusions. Heart: Heart size is normal. No pericardial effusion. Thoracic Vessels: The thoracic aorta is normal in size. Mediastinum and Yvette: No lymphadenopathy by size criteria. Esophagus: No wall thickening. No hiatal hernia. Abdomen: Visualized upper abdominal solid organs appear normal in the early arterial phase of enhancement. IMPRESSION: 1. No evidence of pulmonary embolism. 2. No acute airspace consolidation. Dictated by: Christian Holliday M.D. on 12/27/2021 at 23:19 Approved by: Christian Holliday M.D. on 12/27/2021 at 23:22
[2021-12-27 23:14] VITALS: PULSE 59; RESP 13; O2SAT 97
[2021-12-27 23:30] VITALS: PULSE 77; RESP 15; O2SAT 98
[2021-12-27 23:40] VITALS: BP 130/80; PULSE 78; RESP 19; O2SAT 97
[2021-12-27 23:53] VITALS: BP 130/80; PULSE 80; RESP 16; O2SAT 97
== END 2021-12-28 | disposition home or self-care (01) ==
PROVIDERS: Emergency Provider Emergency Medicine; PCP Family Medicine
DX: O90.89 Other complications of the puerperium, not elsewhere classified (principal); R07.89 Other chest pain; R11.0 Nausea; I10 Essential (primary) hypertension
CPT/HCPCS: 36415; 71045; 71275; 80053; 82550; 83690; 83735; 84484; 85025; 85379; 93005; 99283; 99284; Q9967

== ENCOUNTER 2022-01-27 10:05 | Emergency (ER) | payer OTHER, SELFPAY ==
[2022-01-27 10:47] VITALS: BP 133/70; PULSE 97; RESP 19; TEMP 36.9; O2SAT 99; BMI 26.6
[2022-01-27 11:34] VITALS: BP 137/60; PULSE 88; RESP 12; TEMP 36.8; O2SAT 96
--- NOTE | 2022-01-27 11:37 | DI.US.S_ITS ---
PROCEDURE: US PELVIC COMPLETE INDICATIONS: vaginal bleeding 6 weeks TECHNIQUE: Real-time scanning was performed of the pelvic organs, with image documentation. Additional endovaginal scanning was necessary due to incomplete visualization of the adnexal and endometrial structures by transabdominal scanning. COMPARISON: [facility], US, US OB >= 14 WEEKS FETUS, 08/21/2021, 15:21. [facility], CR, XR CHEST 1V, 12/27/2021, 21:21. [facility], CT, CT ANGIO CHEST PE PROTOCOL, 12/27/2021, 22:29. FINDINGS: Uterus: Uterus is retroverted and normal in size at 8.1 x 5.3 x 7 5 cm. The myometrium is homogeneous. The endometrium measures 6 mm combined thickness. Mild heterogeneity can be seen along the medial stripe, solid components. No abnormal vascularity can be seen. Ovaries: The right ovary measures 2.8 x 5.3 x 1 cm, with a calculated ovarian volume of 14.3 cc. The left ovary measures 3.1 x 0.74 cm, with a calculated ovarian volume of 3.7 cc. The ovaries have a normal sonographic appearance, with a 1.6 cm simple cyst involving ovary. Less than 12 follicles can be seen in each ovary. No adnexal masses are seen. Other: No pathologic free abdominal or pelvic fluid. IMPRESSION: No hypervascularity or suspicious lesion can be seen along the endometrial stripe to suggest retained products of conception. We strive to produce accurate, complete, and clear reports of imaging services. To assist us in improving patient care, this report was composed using standard report templates and voice recognition software. Therefore, it may contain abnormal punctuation, insertions and/or omissions. Occasional wrong-word or sound-alike substitutions may occur. Though we review the report and make efforts to correct it, we do recommend that the report be read carefully in proper context to recognize any text inaccuracies. Dictated by: Aquiles Latif M.D. on 01/27/2022 at 12:05 Approved by: Aquiles Latif M.D. on 01/27/2022 at 12:07
--- NOTE | 2022-01-27 13:05 | ED.PREGNANCY ---
HPI - <CLARITZA Porter - Last Filed: 01/27/22 14:16> General Chief complaint: Vaginal Bleeding Stated complaint: vaginal string/bleeding after giving 12/21 Time Seen by Provider: 01/27/22 11:37 Source: patient Mode of arrival: Family Vehicle Limitations: no limitations History of Present Illness HPI Narrative: This is a 21-year-old female presents emergency department 6 weeks and states that she has had a menstrual cycle yet but 2 days ago started having vaginal bleeding, she states that she noticed a small string coming out of her vagina and it was white, she thinks it was a suture. She does not have an IUD, she denies nausea, vomiting, fever, chills, she states that her 6-week-old has had influenza and pneumonia, and she also became ill and is congested, has had a cold but states that she is getting better. She states that her vaginal bleeding started with dark blood and clots, she is some more clots, now is bright red. She denies nausea or vomiting menstrual cramping, or other symptom. Related Data Home Medications Medication Instructions Recorded Confirmed prenat.vits,casandra,[id number] 1 tab PO DAILY 06/21/21 12/18/21 Previous Rx's Medication Instructions Recorded acetaminophen 325 mg tablet 650 mg PO Q6HR PRN Pain, Mild 12/22/21 (1-3) #30 tabs docusate sodium 100 mg capsule 100 mg PO DAILY #30 caps 12/22/21 ibuprofen 600 mg tablet 600 mg PO Q6HR PRN Pain, Mild 12/22/21 (1-3) #30 tabs Allergies Allergy/AdvReac Type Severity Reaction Status Date / Time No Known Drug Allergies Allergy Verified 12/27/21 21:21 Review of Systems <CLARITZA Porter - Last Filed: 01/27/22 14:16> Review of Systems ROS Unobtainable: All systems reviewed & are unremarkable except as noted in HPI and below Exam <CLARITZA Porter - Last Filed: 01/27/22 14:16> Narrative Exam Narrative: Reviewed vitals signs and nursing notes. General: cooperative, comfortable, in no acute distress, well groomed HEENT: symmetrical facial expressions, moist mucous membranes, congestion Cardiovascular: regular rate and rhythm, no peripheral edema, warm extremities Respiratory: normal effort, able to speak in complete sentences, without wheezing, stridor, or abnormal breath sounds. No retractions or tachypnea. GI: abdomen soft, nontender to palpation, nondistended, without masses, rebound tenderness or exquisite tenderness with exam. Operations Superintendent MSK: moves all extremities, neurovascularly intact, no weakness, normal tone Skin: brisk capillary refill, without pallor or erythema Neuro: normal speech and cognition, A&O x3, ambulatory, clear speech Psych: mental status is grossly normal, congruent mood, normal affect, pleasant and cooperative Initial Vital Signs Initial Vital Signs: Vital Signs Temperature 98.4 F 01/27/22 10:47 Pulse Rate 97 H 01/27/22 10:47 Respiratory Rate 19 01/27/22 10:47 Blood Pressure 133/70 01/27/22 10:47 Pulse Oximetry 99 01/27/22 10:47 Oxygen Delivery Method 01/27/22 10:47 <Simona Patel DO - Last Filed: 01/28/22 12:47> Initial Vital Signs Initial Vital Signs: Vital Signs Temperature 98.4 F 01/27/22 10:47 Pulse Rate 97 H 01/27/22 10:47 Respiratory Rate 19 01/27/22 10:47 Blood Pressure 133/70 01/27/22 10:47 Pulse Oximetry 99 01/27/22 10:47 Oxygen Delivery Method 01/27/22 10:47 Course <CLARITZA Porter - Last Filed: 01/27/22 14:16> Orders Ordered: ED Orders 01/27/22 11:37 US pelvic complete Stat 01/27/22 12:40 CBC Auto Diff [Complete Blood Count AUTO DIFF] Stat CMP [Comprehensive Metabolic Panel] Stat CRP [C-Reactive Protein Quant] Stat HCG Quantitative /Beta subunit Stat 01/27/22 13:20 Urine Culture Stat 01/27/22 13:28 Urine Microscopic Stat Vital Signs Vital signs: Vital Signs - 8 hr 01/27/22 10:47 01/27/22 11:34 01/27/22 13:29 Temperature 98.4 F 98.3 F Pulse Rate 97 H 88 92 H Respiratory Rate 19 12 16 Blood Pressure 133/70 137/60 121/60 Pulse Oximetry 99 96 99 Oxygen Delivery Method Room Air Room Air Room Air 01/27/22 13:30 12/04/22 13:32 01/27/22 13:32 Temperature Pulse Rate 120 H 103 H Respiratory Rate Blood Pressure 125/76 Pulse Oximetry 97 97 Oxygen Delivery Method Room Air Room Air <Simona Patel DO - Last Filed: 01/28/22 12:47> Orders Ordered: ED Orders 01/27/22 11:37 US pelvic complete Stat 01/27/22 12:40 CBC Auto Diff [Complete Blood Count AUTO DIFF] Stat CMP [Comprehensive Metabolic Panel] Stat CRP [C-Reactive Protein Quant] Stat HCG Quantitative /Beta subunit Stat 01/27/22 13:20 Urine Culture Stat 01/27/22 13:28 Urine Microscopic Stat Vital Signs Vital signs: Vital Signs - 8 hr 01/27/22 10:47 01/27/22 11:34 01/27/22 13:29 Temperature 98.4 F 98.3 F Pulse Rate 97 H 88 92 H Respiratory Rate 19 12 16 Blood Pressure 133/70 137/60 121/60 Pulse Oximetry 99 96 99 Oxygen Delivery Method Room Air Room Air Room Air 01/27/22 13:30 01/27/22 13:32 01/27/22 13:32 Temperature Pulse Rate 120 H 103 H Respiratory Rate Blood Pressure 125/76 Pulse Oximetry 97 97 Oxygen Delivery Method Room Air Room Air MDM - OB/Uterine Contractions <CLARITZA Porter - Last Filed: 01/27/22 14:16> Lab Data Result diagrams: 01/27/22 12:40 01/27/22 12:40 Labs: Lab Results 01/27/22 01/27/22 01/27/22 Range/Units 12:40 12:40 12:40 WBC 6.3 (4.5-11.0) X10^3/uL RBC 4.67 (4.0-5.2) X10^6/uL Hgb 12.5 (12.0-16.0) g/dL Hct 39.2 (36-46) % MCV 83.9 (80-100) fL MCH 26.8 (26-34) PG MCHC 32.0 (30-36) % RDW 15.3 H (11.6-14.8) % Plt Count 300 (150-400) X10^3/uL Neut % (Auto) 68.7 (50-75) % Lymph % (Auto) 19.0 L (25-40) % Larue % (Auto) 9.3 (3-14) % Eos % (Auto) 2.6 (2-4) % Baso % (Auto) 0.4 (0-2) % Neut # (Auto) 4400 (1352-2749) /uL Lymph # (Auto) 1200 (5548-2421) /uL Larue # (Auto) 600 (0-900) /uL Eos # (Auto) 200 (0-450) /uL Baso # (Auto) 0 (0-100) /uL Sodium 141 (137-145) mmol/L Potassium 3.5 (3.4-5.1) mmol/L Chloride 103 (98-107) mmol/L Carbon Dioxide 23 (22-32) mmol/L BUN 6 L (7-17) mg/dL Creatinine 0.61 (0.52-1.04) mg/dL Estimated GFR > 60 (>60) mL/min BUN/Creatinine Ratio 9.8 (6-22) Glucose 84 (70-100) mg/dL Calcium 9.3 (8.4-10.2) mg/dL Total Bilirubin 0.5 (0.2-1.3) mg/dL AST 18 (14-36) IU/L ALT 15 (<35) IU/L Alkaline Phosphatase 85 (38-126) U/L C-Reactive Protein (<1.0) mg/dL Total Protein 7.7 (6.3-8.2) g/dL Albumin 4.2 (3.5-5.0) g/dL Globulin 3.5 (1.7-4.1) g/dL Albumin/Globulin Ratio 1.2 (1.0-2.8) HCG, Quant < 2.4 mIU/mL 01/27/22 Range/Units 12:40 WBC (4.5-11.0) X10^3/uL RBC (4.0-5.2) X10^6/uL Hgb (12.0-16.0) g/dL Hct (36-46) % MCV (80-100) fL MCH (26-34) PG MCHC (30-36) % RDW (11.6-14.8) % Plt Count (150-400) X10^3/uL Neut % (Auto) (50-75) % Lymph % (Auto) (25-40) % Larue % (Auto) (3-14) % Eos % (Auto) (2-4) % Baso % (Auto) (0-2) % Neut # (Auto) (6422-6274) /uL Lymph # (Auto) (1843-2683) /uL Larue # (Auto) (0-900) /uL Eos # (Auto) (0-450) /uL Baso # (Auto) (0-100) /uL Sodium (137-145) mmol/L Potassium (3.4-5.1) mmol/L Chloride (98-107) mmol/L Carbon Dioxide (22-32) mmol/L BUN (7-17) mg/dL Creatinine (0.52-1.04) mg/dL Estimated GFR (>60) mL/min BUN/Creatinine Ratio (6-22) Glucose (70-100) mg/dL Calcium (8.4-10.2) mg/dL Total Bilirubin (0.2-1.3) mg/dL AST (14-36) IU/L ALT (<35) IU/L Alkaline Phosphatase (38-126) U/L C-Reactive Protein 3.2 H (<1.0) mg/dL Total Protein (6.3-8.2) g/dL Albumin (3.5-5.0) g/dL Globulin (1.7-4.1) g/dL Albumin/Globulin Ratio (1.0-2.8) HCG, Quant mIU/mL Point of Care Testing Test Results Negative Urine Dip Bedside Urine Glucose Negative Bedside Urine Bilirubin - Negative Bedside Urine Ketone +++ 80 Urine Specific [place] 1.025 Bedside Urine Occult Blood +++ Bedside Urine pH 6.0 Bedside Urine Protein + 30 Bedside Urine Urobilinogen +/- 1mg Bedside Urine Nitrite - Negative Bedside Urine Leukocytes - Negative Esterase Imaging Data US - BELLY ROLLER: Radiologist's Impression: PROCEDURE:? US PELVIC COMPLETE ? INDICATIONS:? vaginal bleeding 6 weeks ? TECHNIQUE:? Real-time scanning was performed of the pelvic organs, with image documentation.? Additional endovaginal scanning was necessary due to incomplete visualization of the adnexal and endometrial structures by transabdominal scanning.? ? COMPARISON:? [facility], US, US OB >= 14 WEEKS FETUS, 08/21/2021, 15:21.? [facility], CR, XR CHEST 1V, 12/27/2021, 21:21.? [facility], CT, CT ANGIO CHEST PE PROTOCOL, 12/27/2021, 22:29. ? FINDINGS:? ?? Uterus:? Uterus is retroverted and normal in size at 8.1 x 5.3 x 7 5 cm. The myometrium is homogeneous. ? The endometrium measures 6 mm combined thickness.? Mild heterogeneity can be seen along the medial stripe, solid components.? No abnormal vascularity can be seen. ? Ovaries:? The right ovary measures 2.8 x 5.3 x 1 cm, with a calculated ovarian volume of 14.3 cc. The left ovary measures 3.1 x 0.74 cm, with a calculated ovarian volume of 3.7 cc. The ovaries have a normal sonographic appearance, with a 1.6 cm simple cyst involving ovary. Less than 12 follicles can be seen in each ovary.? No adnexal masses are seen. ? Other:? No pathologic free abdominal or pelvic fluid. ? ? IMPRESSION:? No hypervascularity or suspicious lesion can be seen along the endometrial stripe to suggest retained products of conception. ? ? We strive to produce accurate, complete, and clear reports of imaging services. To assist us in improving patient care, this report was composed using standard report templates and voice recognition software. Therefore, it may contain abnormal punctuation, insertions and/or omissions. Occasional wrong-word or sound-alike substitutions may occur. Though we review the report and make efforts to correct it, we do recommend that the report be read carefully in proper context to recognize any text inaccuracies. ? ? Dictated by: Aquiles Latif M.D. on 01/27/2022 at 12:05 ? ? Approved by: Aquiles Latif M.D. on 01/27/2022 at 12:07 ? MDM Narrative Medical decision making narrative: This is a 21 year emergency department 6 weeks complaining of a string coming out of her vagina, and vaginal bleeding that started 2 days ago without starting a menstrual cycle yet. Patient's lab work is unremarkable, no leukocytosis, no anemia, patient has an upper respiratory infection and her CRP is mildly elevated 3.2 without other abnormal findings. Her hCG was negative, pelvis ultrasound shows no hypervascularity or suspicious same along the endometrial stripe to suggest retained products of conception, uterus was normal, endometrium measures 6 mm without abnormal vascularity or adnexal masses. There is a 1.6 cm simple cyst involving the left ovary. No free abdominal or pelvic fluid. On pelvic exam, she had 2 small suture strings sticking out of the base of vaginal opening, in the vaginal mucosa, this was trimmed as patient had mild tenderness with any tension. Speculum exam was limited due to pain, patient has not had sexual intercourse yet, it appears she has dark blood coming from her cervix, without any lesion, abnormal tissue or bleeding from her episiotomy site. Patient's UA was negative for infection, . She has upper respiratory congestion and is getting over a cold, her son is positive for influenza with pneumonia. Patient denies any for pain medication, does not have cramping, this is most likely her 1st menstrual cycle following vaginal delivery, she is not on contraception. Patient does not have any findings on exam, discussed treatment with ibuprofen, staying hydrated, and follow-up with Dr. Arguelles if she has any worsening of her symptoms or bleeding. No peritoneal signs on abdominal exam. Patient remains p.o. tolerant. Serial abdominal exam without increase in abdominal pain. Given history and exam, low suspicion for acute abdominal processExtensive conversation about ER return precautions and need for close follow-up. Patient is appropriate and amenable to discharge home. Vital signs are stable on repeat examination is unremarkable. Patient has been informed of results. Patient has been given strict return to ER precautions for any new or worsening symptoms. Patient understands to follow up closely with outpatient providers as instructed. Patient understands plan and agrees to discharge home. All questions and concerns answered at this time. <Simona Patel, DO - Last Filed: 01/28/22 12:47> Lab Data Labs: Lab Results 01/27/22 01/27/22 01/27/22 Range/Units 12:40 12:40 12:40 WBC 6.3 (4.5-11.0) X10^3/uL RBC 4.67 (4.0-5.2) X10^6/uL Hgb 12.5 (12.0-16.0) g/dL Hct 39.2 (36-46) % MCV 83.9 (80-100) fL MCH 26.8 (26-34) PG MCHC 32.0 (30-36) % RDW 15.3 H (11.6-14.8) % Plt Count 300 (150-400) X10^3/uL Neut % (Auto) 68.7 (50-75) % Lymph % (Auto) 19.0 L (25-40) % Larue % (Auto) 9.3 (3-14) % Eos % (Auto) 2.6 (2-4) % Baso % (Auto) 0.4 (0-2) % Neut # (Auto) 4400 (0026-8411) /uL Lymph # (Auto) 1200 (8160-2983) /uL Larue # (Auto) 600 (0-900) /uL Eos # (Auto) 200 (0-450) /uL Baso # (Auto) 0 (0-100) /uL Sodium 141 (137-145) mmol/L Potassium 3.5 (3.4-5.1) mmol/L Chloride 103 (98-107) mmol/L Carbon Dioxide 23 (22-32) mmol/L BUN 6 L (7-17) mg/dL Creatinine 0.61 (0.52-1.04) mg/dL Estimated GFR > 60 (>60) mL/min BUN/Creatinine Ratio 9.8 (6-22) Glucose 84 (70-100) mg/dL Calcium 9.3 (8.4-10.2) mg/dL Total Bilirubin 0.5 (0.2-1.3) mg/dL AST 18 (14-36) IU/L ALT 15 (<35) IU/L Alkaline Phosphatase 85 (38-126) U/L C-Reactive Protein (<1.0) mg/dL Total Protein 7.7 (6.3-8.2) g/dL Albumin 4.2 (3.5-5.0) g/dL Globulin 3.5 (1.7-4.1) g/dL Albumin/Globulin Ratio 1.2 (1.0-2.8) HCG, Quant < 2.4 mIU/mL 01/27/22 Range/Units 12:40 WBC (4.5-11.0) X10^3/uL RBC (4.0-5.2) X10^6/uL Hgb (12.0-16.0) g/dL Hct (36-46) % MCV (80-100) fL MCH (26-34) PG MCHC (30-36) % RDW (11.6-14.8) % Plt Count (150-400) X10^3/uL Neut % (Auto) (50-75) % Lymph % (Auto) (25-40) % Larue % (Auto) (3-14) % Eos % (Auto) (2-4) % Baso % (Auto) (0-2) % Neut # (Auto) (4104-8934) /uL Lymph # (Auto) (5957-6199) /uL Larue # (Auto) (0-900) /uL Eos # (Auto) (0-450) /uL Baso # (Auto) (0-100) /uL Sodium (137-145) mmol/L Potassium (3.4-5.1) mmol/L Chloride (98-107) mmol/L Carbon Dioxide (22-32) mmol/L BUN (7-17) mg/dL Creatinine (0.52-1.04) mg/dL Estimated GFR (>60) mL/min BUN/Creatinine Ratio (6-22) Glucose (70-100) mg/dL Calcium (8.4-10.2) mg/dL Total Bilirubin (0.2-1.3) mg/dL AST (14-36) IU/L ALT (<35) IU/L Alkaline Phosphatase (38-126) U/L C-Reactive Protein 3.2 H (<1.0) mg/dL Total Protein (6.3-8.2) g/dL Albumin (3.5-5.0) g/dL Globulin (1.7-4.1) g/dL Albumin/Globulin Ratio (1.0-2.8) HCG, Quant mIU/mL Point of Care Testing Test Results Negative Urine Dip Bedside Urine Glucose Negative Bedside Urine Bilirubin - Negative Bedside Urine Ketone +++ 80 Urine Specific [place] 1.025 Bedside Urine Occult Blood +++ Bedside Urine pH 6.0 Bedside Urine Protein + 30 Bedside Urine Urobilinogen +/- 1mg Bedside Urine Nitrite - Negative Bedside Urine Leukocytes - Negative Esterase Discharge Plan Departure Patient Disposition: Home Clinical Impression: Vaginal bleeding Post-op foreign body Qualifiers: Encounter type: initial encounter Qualified Code(s): T81.509A - Unspecified complication of foreign body accidentally left in body following unspecified procedure, initial encounter Instructions: Heavy Menstrual Bleeding, DI for Vaginal Bleeding Activity Restrictions/Additional Instructions: *You have been diagnosed with dissolvable suture coming out of your episiotomy site after your vaginal delivery on 12/21. This was trimmed today, you may find another some time, it is okay to trim that, if you develop any fever, chills, abnormal vaginal discharge or concern for infection, please come back to the emergency department for another exam. Please follow-up with Dr. Kessler as needed, stay hydrated, use Claritin or Zyrtec as needed for your congestion, take ibuprofen 600 mg every 6 hours for pain and it may help with bleeding. I wish you the best, thank you for your patients. We did not find anything dangerous on your lab work or ultrasound today. *What to do: *Please continue to take your regular medications as directed. [ ] New medication prescriptions sent to your pharmacy: [ ] [ ] New medication written as a paper prescription [x ] No new medications given *Please follow up with your primary care provider in 2-3 days, call for an appointment. Let them know you were seen in the Emergency Department and that we asked that you be seen for follow-up. We will electronically transmit a record of today's note if your PCP is in our system *If you do not have a primary care provider please contact [phone] to establish care with one of the [facility] primary care providers. *Return to Emergency Department if you should have any new, worsening, or concerning symptoms, such as [fever greater than 101F, chills, worsening pain, persistent vomiting or other bothersome symptoms]. Prescriptions: No Action prenat.vits,casandra,[id number] Tablet 1 tab PO DAILY acetaminophen 325 mg Tablet 650 mg PO Q6HR PRN (Reason: Pain, Mild (1-3)) Qty: 30 0RF docusate sodium 100 mg Capsule 100 mg PO DAILY Qty: 30 0RF ibuprofen 600 mg Tablet 600 mg PO Q6HR PRN (Reason: Pain, Mild (1-3)) Qty: 30 0RF Referrals: Janette Mccoy MD [Primary Care Provider] - Visit Report Forms: Patient Portal/API <Simona Patel, DO - Last Filed: 01/28/22 12:47> Cosign ED Attending Cosignature Attestation: I was immediately available in the department for consultation. Documentation has been reviewed. Case was discussed.
[2022-01-27 13:09] LABS: Add Manual Diff / Slide Review NO; Basophils Absolute Auto 0 /uL (0-100); Basophils Percent Auto 0.4 % (0-2); Eosinophils Absolute Auto 200 /uL (0-450); Eosinophils Percent Auto 2.6 % (2-4); Hematocrit 39.2 % (36-46); Hemoglobin 12.5 g/dL (12.0-16.0); Lymphocytes Absolute Auto 1200 /uL (1100-4500); Mean Corpuscular Hemoglobin 26.8 PG (26-34); Mean Corpuscular Volume 83.9 fL (80-100); Monocytes Absolute Auto 600 /uL (0-900); Monocytes Percent Auto 9.3 % (3-14); Neutrophils Absolute Auto 4400 /uL (1500-7000); Neutrophils Percent Auto 68.7 % (50-75); Platelet Count 300 X10^3/uL (150-400); Red Blood Cell Count 4.67 X10^6/uL (4.0-5.2); Red Cell Distribution Width 15.3 % (11.6-14.8); White Blood Cell Count 6.3 X10^3/uL (4.5-11.0)
[2022-01-27 13:29] VITALS: BP 121/60; PULSE 92; RESP 16; O2SAT 99
[2022-01-27 13:30] VITALS: PULSE 120; O2SAT 97
[2022-01-27 13:32] VITALS: BP 125/76; PULSE 103; O2SAT 97
[2022-01-27 13:39] LABS: Alanine Aminotransferase 15 IU/L (<35); Albumin 4.2 g/dL (3.5-5.0); Albumin Globulin Ratio 1.2 (1.0-2.8); Alkaline Phosphatase 85 U/L (38-126); Aspartate Aminotransferase 18 IU/L (14-36); BUN Creatinine Ratio 9.8 (6-22); Bilirubin Total 0.5 mg/dL (0.2-1.3); Blood Urea Nitrogen 6 mg/dL (7-17); Calcium 9.3 mg/dL (8.4-10.2); Carbon Dioxide 23 mmol/L (22-32); Chloride 103 mmol/L (98-107); Estimated Glomerular Filt Rate > 60 mL/min (>60); Globulin 3.5 g/dL (1.7-4.1); Glucose 84 mg/dL (70-100); HEMOLYSIS < 15 (0-50); Potassium 3.5 mmol/L (3.4-5.1); Sodium 141 mmol/L (137-145); Total Protein 7.7 g/dL (6.3-8.2)
[2022-01-27 13:43] LABS: C-Reactive Protein Quant 3.2 mg/dL (<1.0)
[2022-01-27 13:55] LABS: HCG Quantitative /Beta subunit < 2.4 mIU/mL
== END 2022-01-27 14:03 | disposition home or self-care (01) ==
PROVIDERS: Emergency Medicine; Emergency Provider Nurse Practitioner Critical Care Medicine; PCP Family Medicine
DX: O72.1 Other immediate postpartum hemorrhage (principal); T81.509A Unspecified complication of foreign body accidentally left in body following unspecified procedure, initial encounter
CPT/HCPCS: 36415; 76830; 76856; 80053; 81003; 81025; 84702; 85025; 86140; 87086; 99283; 99284

== ENCOUNTER → 2022-02-08 09:54 | Outpatient (CLI) | payer OTHER, SELFPAY ==
[2022-02-08 12:23] LABS: Glucose Tol Interpretation INTERPRETATION
[2022-02-08 12:43] LABS: Glucose Fasting 87 mg/dL (70-100)
[2022-02-08 14:14] LABS: Glucose 2 Hour 120 mg/dL (70-140)
[2022-02-08 16:51] LABS: Glucose 1 Hour 79 mg/dL (70-170)
== END ==
PROVIDERS: PCP Family Medicine; Referring Provider Family Medicine; Visit Provider Family Medicine
DX: O24.419 Gestational diabetes mellitus in pregnancy, unspecified control (principal); Z3A.00 Weeks of gestation of pregnancy not specified
CPT/HCPCS: 36415; 82951; 82952